=== PATIENT | female | born 1985 | race Asian ===

== ENCOUNTER 2016-10-28 16:46 | Outpatient (CLI) | payer OTHER ==
[~2016-10-28 16:46] MED LIST: ALBU0.5N6 IN; ALBU90AE13 INH; FLUTMIS2 INH; PRED20TA27 PO
== END 2016-10-28 20:10 | disposition home or self-care (01) ==
LOC: LABW 16:46
DX: Z32.01 Encounter for pregnancy test, result positive (principal)
CPT/HCPCS: 36415; 84702

== ENCOUNTER 2016-11-03 09:30 | Emergency (ER) | payer OTHER ==
[~2016-11-03] VITALS: Ht 157.5 cm; Wt 82.6 kg
[2016-11-03] MEDS ORDERED: SINGULAIR10 MG PO (09:47)
[2016-11-03 11:32] LABS: PLATELET COUNT 346 K/uL (152-353)
[2016-11-03 11:41] LABS: POTASSIUM 3.9 mmol/L (3.6-5.2); SODIUM 135 mmol/L (136-145)
[2016-11-03 13:43] VITALS: BP 115/68; TEMP 98.2
== END 2016-11-03 13:44 | disposition home or self-care (01) ==
LOC: ED 09:30
PROVIDERS: Emergency Medicine
DX: K31.89 Other diseases of stomach and duodenum (principal)
CPT/HCPCS: 36415; 80053; 81000; 81025; 82150; 83690; 85027; 99283

== ENCOUNTER 2017-09-16 22:32 | Emergency (ER) | payer OTHER ==
[~2017-09-16] VITALS: Ht 157.5 cm; Wt 85.7 kg
[~2017-09-16 22:32] MED LIST changes: +SINGULAIR10 MG PO
[2017-09-16 23:22] LABS: PLATELET COUNT 379 K/uL (152-353)
[2017-09-16 23:38] LABS: POTASSIUM 3.6 mmol/L (3.6-5.2); SODIUM 138 mmol/L (136-145)
[2017-09-17 00:34] VITALS: BP 107/65; TEMP 98
== END 2017-09-17 00:35 | disposition home or self-care (01) ==
LOC: ED 22:32
DX: R10.13 Epigastric pain (principal)
CPT/HCPCS: 80053; 82150; 83690; 85027; 86318; 87081; 87804; 87880; 99283

== ENCOUNTER 2017-11-09 11:16 | Emergency (ER) | payer OTHER ==
[~2017-11-09] VITALS: Ht 157.5 cm; Wt 88.0 kg
[2017-11-09 13:41] VITALS: BP 123/74; TEMP 98.2
== END 2017-11-09 13:43 | disposition home or self-care (01) ==
LOC: ED 11:16
DX: J45.901 Unspecified asthma with (acute) exacerbation (principal); J30.2 Other seasonal allergic rhinitis
CPT/HCPCS: 94664; 96372; 99283; J1100

== ENCOUNTER 2019-05-27 06:25 | Emergency (ER) | payer OTHER ==
[~2019-05-27] VITALS: Ht 157.5 cm; Wt 86.2 kg
[2019-05-27 06:25] VITALS: TEMP 97.7
[2019-05-27 06:49] LABS: PLATELET COUNT 385 K/uL (152-353)
[2019-05-27 06:58] LABS: POTASSIUM 3.3 mmol/L (3.6-5.2); SODIUM 138 mmol/L (136-145)
[2019-05-27 07:55] VITALS: BP 118/75
== END 2019-05-27 08:08 | disposition home or self-care (01) ==
LOC: ED 06:25
PROVIDERS: Emergency Medicine
DX: J45.909 Unspecified asthma, uncomplicated (principal); Z33.1 Pregnant state, incidental
CPT/HCPCS: 36600; 80053; 82550; 82805; 84484; 85027; 85379; 93005; 94664; 99284

== ENCOUNTER 2019-06-30 13:33 | Emergency (ER) | payer OTHER | END 2019-06-30 13:45 | disposition home or self-care (01) | LOC: ED 13:33 | DX: J45.909 Unspecified asthma, uncomplicated (principal) | CPT/HCPCS: 99281 ==

== ENCOUNTER 2019-10-26 10:56 | Emergency (ER) | payer OTHER ==
[~2019-10-26] VITALS: Ht 157.5 cm; Wt 87.1 kg
[2019-10-26 12:05] VITALS: BP 103/58; TEMP 97.9
== END 2019-10-26 12:05 | disposition home or self-care (01) ==
LOC: ED 10:56
DX: O23.593 Infection of other part of genital tract in pregnancy, third trimester (principal)
CPT/HCPCS: 99284

== ENCOUNTER 2021-11-08 09:32 | Emergency (ER) | payer OTHER ==
[~2021-11-08] VITALS: Ht 157.5 cm; Wt 87.1 kg
[2021-11-08 11:20] VITALS: BP 118/76; TEMP 97.8
== END 2021-11-08 11:25 | disposition home or self-care (01) ==
LOC: ED 09:32
DX: J45.901 Unspecified asthma with (acute) exacerbation (principal)
CPT/HCPCS: 94664; 96365; 99283; J0696

== ENCOUNTER 2022-04-06 04:07 | Observation (INO) | payer OTHER ==
[2022-04-06] VITALS (12 sets, daily range): BP systolic 97–154; BP diastolic 54–81; TEMP 97.4–99; Ht 157.5 cm; Wt 100.0 kg
[~2022-04-06] VITALS: Ht 157.5 cm; Wt 100.0 kg
[2022-04-06 06:54] LABS: PLATELET COUNT 376 K/uL (152-353)
[2022-04-07] VITALS: BP 124/61; TEMP 98
[2022-04-07 04:00] VITALS: BP 110/67; TEMP 98.6
[2022-04-07 12:00] VITALS: BP 111/74; TEMP 98.1
[2022-04-07 16:00] VITALS: BP 111/74; TEMP 37.4
[2022-04-07 20:00] VITALS: BP 122/53; TEMP 98.1
[2022-04-08] VITALS: BP 112/62; TEMP 98.3
[2022-04-08 04:00] VITALS: BP 96/51; TEMP 98.4
[2022-04-08 08:00] VITALS: BP 111/49; TEMP 98.2
[2022-04-08] MEDS ORDERED: ALBU90AE13 INH (08:54)
[2022-04-08] MEDS ORDERED: MONT10TA PO (08:55)
[2022-04-08] MEDS ORDERED: FLUTMIS2 INH (08:55)
[2022-04-08] MEDS ORDERED: ALBU0.042 INH (08:57)
[2022-04-08] MEDS ORDERED: PRED10TA27 PO (09:06)
== END 2022-04-08 10:22 | disposition home or self-care (01) ==
LOC: ED 04:07 → MED/SURG 06:28
PROVIDERS: ADMIT Emergency Medicine; ATTEND Internal Medicine
DX: J45.41 Moderate persistent asthma with (acute) exacerbation (principal); R55 Syncope and collapse; R06.02 Shortness of breath; R05.8 Other specified cough
CPT/HCPCS: 36415; 80053; 83880; 85027; 87635; 94644; 94645; 94664; 94760; 96374; 99220; 99284; G0378; J1100; J2543; J2920; J2930; U0003

== ENCOUNTER 2022-04-29 12:10 | Outpatient (CLI) | payer OTHER ==
[~2022-04-29 12:10] MED LIST changes: +ALBU0.042 INH; +MONT10TA PO; +PRED10TA27 PO
[2022-04-29 12:27] LABS: PLATELET COUNT 328 K/uL (152-353)
== END 2022-04-29 19:01 | disposition home or self-care (01) ==
LOC: LABW 12:10
PROVIDERS: ATTEND Internal Medicine Critical Care Medicine
DX: J45.909 Unspecified asthma, uncomplicated (principal)
CPT/HCPCS: 36415; 82785; 85027; 86003; 86331; 86602; 86606; 86671